=== PATIENT | female | born 1955 | race Caucasian/White ===

== ENCOUNTER 2023-11-24 13:39 | Emergency (ER) | payer OTHER ==
[2023-11-24] VITALS (10 sets, daily range): BP systolic 124–173; BP diastolic 47–84
[~2023-11-24] VITALS: Ht 157.5 cm; Wt 95.0 kg
[2023-11-24] MEDS ORDERED: PAXLOVID PO (16:49)
== END 2023-11-24 18:43 | disposition home or self-care (01) | DRG 179 ==
LOC: ED 13:39
DX: U07.1 COVID-19 (principal); R05.9 Cough, unspecified; I10 Essential (primary) hypertension; E78.5 Hyperlipidemia, unspecified